=== PATIENT | female | born 1990 | race Caucasian/White ===

== ENCOUNTER → 2016-09-21 | Outpatient (CLI) | payer OTHER ==
--- NOTE | ~2016-09-21 | US98 ---
[facility] A Service of [facility] & [facility] RADIOLOGY TEXT RESULTS PATIENT: HAYLIE HIGGINS LOCATION: [facility] : [birth year] UNIT #: [id number] AGE: [address]: Ada Brar SEX: F ORDER DR: [id number] [facility] [address] [place], [place] [address] [id number] O MR#: [id number] Acc #: [id number] NAME: HAYLIE HIGGINS : 1990 SEX: F STUDY DATE/TIME: 09/21/2016 11:46 UNIT: [facility] ROOM: STUDY DESCRIPTION: US Pelvic Non-OB Complete Attending Physician: Ada Brar A.P.R.N. Ordering Physician: Ada Brar A.P.R.N. Primary Care Physician: Ada Brar A.P.R.N. MEDICAL IMAGING REPORT This report is preliminary unless electronic signature is present EXAM Pelvic ultrasound, transabdominal and transvaginal technique 09/21/2016 INDICATIONS Lower quadrant pain bilaterally for 2 weeks. TECHNIQUE Sonographic imaging of the pelvis was performed transabdominally and then transvaginally for better evaluation of the adnexa and ovarian structures. No comparisons. FINDINGS TRANSABDOMINAL IMAGING: Uterine dimensions are about 7.2 x 2.0 x 3.7 cm. The endometrial stripe and both ovaries are seen transabdominally but better characterized transvaginally. TRANSVAGINAL IMAGING: Endometrial stripe measures about 6 mm, the normal range. Incidental nabothian cysts in the cervix. Uterus otherwise unremarkable. The ovaries are unremarkable. The right measures up to 2.7 cm long axis and the left up to 2.8 cm. Both ovaries demonstrate good flow at the time of the study. Small follicles are present in both ovaries. No adnexal mass or drainable fluid collection or free fluid identified. IMPRESSION 1. Negative pelvic ultrasound. Dictated by... Aaron Almaraz M.D. THIS IS AN ELECTRONICALLY VERIFIED REPORT Aaron Almaraz M.D. at 09/21/2016 7:06 PM [facility] A Service of [facility] & [facility] RADIOLOGY TEXT RESULTS PATIENT: [facility]AY[facility]IG[facility]INS [id number] [birth year] UNIT #: [id number] AGE: [address]: Ada Brar SEX: F ORDER DR: EFREM/eduar TD: 09/21/2016 13:12 JOB #: [id number] MEDICAL IMAGING REPORT COPY
== END | disposition home or self-care (01) ==
LOC: CWCC 11:08
DX: R10.2 Pelvic and perineal pain (principal); F32.9 Major depressive disorder, single episode, unspecified; J30.9 Allergic rhinitis, unspecified; G44.209 Tension-type headache, unspecified, not intractable; Z79.899 Other long term (current) drug therapy; Z87.09 Personal history of other diseases of the respiratory system; Z88.8 Allergy status to other drugs, medicaments and biological substances; Z88.1 Allergy status to other antibiotic agents; Z91.040 Latex allergy status
CPT/HCPCS: 76856